=== PATIENT | male | born 1965 | race Caucasian/White ===

== ENCOUNTER 2017-02-15 15:03 | Emergency (ER) | payer OTHER ==
[2017-02-15] MEDS: NORCO, ANEXSIA 5/325MG TABLET (HYDROcodone/ACETAMINOPHEN) PO (15:48)
== END 2017-02-15 16:16 | disposition home or self-care (01) ==
LOC: M ED 15:03
DX: S42.302A Unspecified fracture of shaft of humerus, left arm, initial encounter for closed fracture (principal); W11.XXXA Fall on and from ladder, initial encounter; Y92.9 Unspecified place or not applicable; Y93.9 Activity, unspecified; Y99.0 Civilian activity done for income or pay
CPT/HCPCS: 73060